=== PATIENT | female | born 1995 | race Caucasian/White ===

== ENCOUNTER → 2021-01-01 09:52 | Outpatient (BNVA) | payer OTHER, SELFPAY | PROVIDERS: PCP Nurse Practitioner Family; Visit Provider Internal Medicine Rheumatology | DX: M19.90 Unspecified osteoarthritis, unspecified site (principal); Z79.899 Other long term (current) drug therapy; Z79.52 Long term (current) use of systemic steroids; M45.9 Ankylosing spondylitis of unspecified sites in spine; M79.7 Fibromyalgia; E66.9 Obesity, unspecified; Z68.41 Body mass index [BMI] 40.0-44.9, adult | CPT/HCPCS: 99204 ==

== ENCOUNTER 2021-01-01 11:43 | Outpatient (CLI) | payer OTHER, SELFPAY ==
--- NOTE | 2021-01-01 12:31 | XR_ITS ---
WS: [id number] Right foot, 3 views, 01/01/2021 Clinical Data: Z79.899 - Other [facility] (current) drug therapy Comparison: None. Findings: No fractures or dislocations are seen. No bone destruction or erosion is noted. The joint spaces and soft tissues are normal. No periarticular demineralization is seen. There are calcifications at the proximal medial base of th e distal phalanx of the right great toe. XR/XR foot RT min 3V* [id number] Impression: Negative right foot.
--- NOTE | 2021-01-01 12:31 | XR_ITS ---
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 Findings: No fractures or dislocations are seen. The soft tissues are unremarkable. The joint spaces are normal No periarticular demineralization or calcifications are seen. XR/XR hand LT min 3V* 27200 Impression: Negative left hand.
--- NOTE | 2021-01-01 12:31 | XR_ITS ---
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 Findings: No fractures or dislocations are seen. The SI joints and pubic symphysis are intact. The soft tissues are not remarkable. XR/XR pelvis 1-2V* [id number] Impression: Negative for fracture.
--- NOTE | 2021-01-01 12:31 | XR_ITS ---
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 Findings: No compression fractures or subluxation is seen. No disc space narrowing is seen. The transverse proc esses and SI joints are normal. There are clips in the right upper quadrant from a cholecystectomy. XR/XR lumbar spine 2-3V* 28620 Impression: Negative lumbar spine.
--- NOTE | 2021-01-01 12:31 | XR_ITS ---
WS: [id number] Left foot, 3 views, 01/01/2021 Clinical Data: Z79.899 - Other petroleum terminal plant operator (current) drug therapy Comparison: None. Findings: No fractures or dislocations are seen. No bone destruction or erosion is noted. The joint spaces and soft tissues are normal. No periarticular demineralization or calcifications are seen. XR/XR foot LT min 3V* [id number] Impression: Negative left foot.
--- NOTE | 2021-01-01 12:31 | XR_ITS ---
WS: [id number] Right knee, 3 views, 01/01/2021 Clinical Data: Z79.899 - Other [facility] (current) drug therapy Comparison: None. Findings: No fractures or dislocations are seen. The joint spaces are normal. The patella is intact. The soft t issues are unremarkable. XR/XR knee RT 3V* 43801 Impression: Negative right knee. Kellgren-Adan Classification: grade 0 (none): definite absence of x-ray tasneem nges of osteoarthritis
--- NOTE | 2021-01-01 12:31 | XR_ITS ---
WS: [id number] Right hand, 3 views, 01/01/2021 Clinical Data: Z79.899 - Other half-way (current) drug therapy Comparison: None. Findings: No fractures or dislocations are seen. The soft tissues are unremarkable. The joint space s are normal No periarticular demineralization or calcification is seen. XR/XR hand RT min 3V* 10061 Impression: Negative right hand.
--- NOTE | 2021-01-01 12:31 | XR_ITS ---
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 Findings: No fractures or dislocations are seen. The joint spaces are normal. The patella is intact. The soft t issues are unremarkable. XR/XR knee LT 3V* 50619 Impression: Negative left knee. Kellgren-Adan Classification: grade 0 (none): definite absence of x-ray tasneem nges of osteoarthritis
[2021-01-01 13:49] LABS: Basophils % 0.3 %; Eosinophils # 0.1 10^3/uL (0.0-0.8); Eosinophils % 1.2 %; Hematocrit 40.1 % (37.0-47.0); Lymphocytes # 3.2 10^3/uL (0.8-4.8); Lymphocytes % 35.3 %; Mean Corpuscular HGB Conc 32.4 g/dL (30.0-36.0); Mean Corpuscular Hemoglobin 30.4 pg (28.0-34.0); Mean Corpuscular Volume 93.7 fL (81-99); Mean Platelet Volume 9.3 fL (7.4-10.4); Monocytes # 0.6 10^3/uL (0.2-0.9); Monocytes % 6.7 %; Neutrophils # 5.05 10^3/uL (1.8-7.7); Neutrophils % 56.2 %; Nucleated Red Blood Cells % 0 %; Platelet Count 332 10^3/cmm (130-400); Red Blood Count 4.28 10^6/uL (4.1-5.3); Red Cell Distribution Width 13.4 % (12.1-15.1)
[2021-01-01 14:23] LABS: Erythrocyte Sedimentation Rate 39 mm/hr (0-15)
[2021-01-01 14:49] LABS: Alanine Aminotransferase 33 U/L (0-33); Albumin Level 4.1 g/dL (3.5-5.2); Alkaline Phosphatase 49 IU/L (35-105); Aspartate Amino Transferase 26 U/L (0-32); C Reactive Protein 13.9 mg/L (0.0-4.9); Globulin 3.4 g/dL (1.3-4.6); Total Bilirubin 0.3 mg/dL (0.15-1.2); Total Protein 7.5 g/dL (6.6-8.7)
[2021-01-01 19:55] LABS: 25 Hydroxy Vitamin D 24 ng/mL (30-100)
[2021-01-03 18:38] LABS: HLA-B27 NEGATIVE (NEGATIVE)
== END 2021-01-01 11:44 | disposition home or self-care (01) ==
PROVIDERS: PCP Nurse Practitioner Family; Visit Provider Internal Medicine Rheumatology
DX: M19.90 Unspecified osteoarthritis, unspecified site (principal); M54.89 Other dorsalgia; Z79.899 Other long term (current) drug therapy; M45.9 Ankylosing spondylitis of unspecified sites in spine
CPT/HCPCS: 36415; 72100; 72170; 73130; 73562; 73630; 80076; 82306; 82565; 85025; 85651; 86140; 86812